=== PATIENT | male | born 1945 | race Caucasian/White ===

== ENCOUNTER → 2017-03-28 | Outpatient (CLI) | payer MEDICARE ==
[~2017-03-28] MED LIST: ASPIRIN PO; CARDIZEM CD PO; LISINOPRIL PO; MESTINON 60 MG; PRILOSEC PO; ZOCOR PO
--- NOTE | ~2017-03-28 | CT4 ---
[facility] A Service of [facility] RADIOLOGY TEXT RESULTS PATIENT: MATHIEU GREENWOOD LOCATION: [facility] : 41 UNIT #: [id number] AGE: [address]: Pawan Nance MD SEX: M ORDER DR: [id number] [facility] [address] [place], [place] [address] [id number] O MR#: [id number] Acc #: [id number] NAME: MATHIEU GREENWOOD : 1945 SEX: M STUDY DATE/TIME: 03/28/2017 15:35 UNIT: CCAT ROOM: STUDY DESCRIPTION: CT Abd and Pelv Wo Cont Attending Physician: Pawan Nance M.D. Referring Physician: Pawan Nance M.D. Ordering Physician: Pawan Nance M.D. Primary Care Physician: Pawan Nance M.D. MEDICAL IMAGING REPORT This report is preliminary unless electronic signature is present EXAM CT abdomen and pelvis without contrast INDICATION Microscopic hematuria for the past [address] of the abdomen and pelvis. This CT exam was performed with one or more of the following radiation dose reduction techniques: automatic exposure control, adjustment of mA and/or kV according to patient size, and iterative reconstruction. COMPARISON None. FINDINGS ABDOMEN WITHOUT CONTRAST: The included lung bases are clear. Scattered coronary artery calcification. ABDOMEN WITHOUT CONTRAST: The liver and spleen show no acute abnormality. Previous cholecystectomy. Pneumobilia. Adrenal glands and pancreas are unremarkable. Postsurgical change in the sigmoid colon. There are a few scattered uncomplicated diverticula in the colon. Appendix is normal. Large cyst exophytic from the anterior right kidney measures 12.6 cm. PELVIS WITHOUT CONTRAST: No pelvic mass or fluid. No aggressive-appearing bone lesion. IMPRESSION 1. No clearly acute finding. [facility] A Service of [facility] RADIOLOGY TEXT RESULTS PATIENT: MATHIEU GREENWOOD LOCATION: [facility] : 41 UNIT #: [id number] AGE: [address]: Pawan Nance MD SEX: M ORDER DR: 2. Large right renal cyst. 3. Pneumobilia with previous cholecystectomy change. 4. A few uncomplicated diverticula scattered throughout the colon. Dictated by... Augustus Maravilla M.D. THIS IS AN ELECTRONICALLY VERIFIED REPORT Augustus Maravilla M.D. at 03/29/2017 7:02 AM KOBY/binu TD: 03/28/2017 22:48 JOB #: [id number] MEDICAL IMAGING REPORT Page 1 of 1 COPY
== END | disposition home or self-care (01) ==
LOC: CCAT 03-25 09:00
DX: R31.29 Other microscopic hematuria (principal); N28.1 Cyst of kidney, acquired; K57.30 Diverticulosis of large intestine without perforation or abscess without bleeding; K83.8 Other specified diseases of biliary tract; Z90.49 Acquired absence of other specified parts of digestive tract
CPT/HCPCS: 74176

== ENCOUNTER → 2017-06-10 | Outpatient (CLI) | payer MEDICARE ==
--- NOTE | ~2017-06-10 | US77 ---
[facility] A Service of [facility] RADIOLOGY TEXT RESULTS PATIENT: MATHIEU GREENWOOD LOCATION: [facility] : 43 UNIT #: [id number] AGE: [address]: Kenrick Whitley MD SEX: M ORDER DR: [id number] [facility] [address] [place], [place] [address] [id number] O MR#: [id number] Acc #: [id number] NAME: MATHIEU GREENWOOD : 1945 SEX: M STUDY DATE/TIME: 06/10/2017 13:30 UNIT: CGUS ROOM: STUDY DESCRIPTION: US Kidney Bilateral Complete Attending Physician: Kenrick Whitley M.D. Referring Physician: Kenrick Whitley M.D. Ordering Physician: Kenrick Whitley M.D. Primary Care Physician: Pawan Nance M.D. MEDICAL IMAGING REPORT This report is preliminary unless electronic signature is present EXAM Renal ultrasound INDICATIONS Hematuria on most recent laboratory values. PROCEDURE Murphy-scale and Doppler imaging of the kidneys and bladder. COMPARISON CT from 03/28/2017 FINDINGS There is a large right renal cyst measuring 12.5 cm exophytic from the anterior right kidney. Right kidney is difficult to measure. No obvious hydronephrosis. Left kidney is mostly obscured but measures approximately 9.6 cm. No obvious hydronephrosis. Unremarkable bladder. IMPRESSION 1. Large right renal cyst. 2. No hydronephrosis. 3. Left kidney difficult to see on this study. Dictated by... Augustus Maravilla M.D. THIS IS AN ELECTRONICALLY VERIFIED REPORT Augustus Maravilla M.D. at 06/11/2017 8:28 AM EED/to TD: 06/11/2017 00:20 [facility] A Service of [facility] RADIOLOGY TEXT RESULTS PATIENT: MATHIEU GREENWOOD LOCATION: [facility] : 43 UNIT #: [id number] AGE: [address]: Kenrick Whitley MD SEX: M ORDER DR: JOB #: [id number] MEDICAL IMAGING REPORT Page 1 of 1 COPY
== END | disposition home or self-care (01) ==
LOC: CGUS 13:08
DX: N28.1 Cyst of kidney, acquired (principal)
CPT/HCPCS: 76770